=== PATIENT | male | born 2000 | race Caucasian/White ===

== ENCOUNTER 2024-09-10 02:19 | Emergency (ER) | payer OTHER ==
[~2024-09-10] VITALS: Ht 175.3 cm; Wt 90.0 kg
[2024-09-10 02:30] VITALS: TEMP 36.9; O2SAT 99
[2024-09-10] MEDS: IBUPROFEN 600MG TABLET PO ONE (03:50)
[2024-09-10] MEDS: TETANUS, DIPHTHERIA, PERTUSSIS VAC/PF 0.5ML (>10YR OLD) IM ONE (03:52)
[2024-09-10 04:49] VITALS: BP 130/88; PULSE 56; RESP 14; O2SAT 100
== END 2024-09-10 04:56 | disposition home or self-care (01) ==
LOC: ER 02:19
DX: S01.01XA Laceration without foreign body of scalp, initial encounter (principal); W22.8XXA Striking against or struck by other objects, initial encounter; Y93.89 Activity, other specified; Y92.89 Other specified places as the place of occurrence of the external cause; Y99.8 Other external cause status
CPT/HCPCS: 90715; 12001; 90471; 99283; Z7610 ×2